=== PATIENT | female | born 1960 | race Caucasian/White ===

== ENCOUNTER 2017-07-02 12:22 | Emergency (ER) | payer OTHER, MEDICAID ==
[~2017-07-02] VITALS: Ht 157.5 cm; Wt 50.0 kg
[~2017-07-02 12:22] MED LIST: BENA1TAB19 PO
[2017-07-02] MEDS ORDERED: KETOROLAC 60MG/2ML VIAL IM ONE (17:00)
[2017-07-02 17:31] VITALS: BP 125/85
== END 2017-07-02 17:32 | disposition home or self-care (01) ==
LOC: ER 13:12
DX: M54.2 Cervicalgia (principal); M54.5 Low back pain; M79.1 Myalgia; F41.9 Anxiety disorder, unspecified; Z98.890 Other specified postprocedural states
CPT/HCPCS: 96372; 99283; J1885

== ENCOUNTER 2020-01-11 16:36 | Emergency (ER) | payer OTHER, MEDICAID ==
[~2020-01-11] VITALS: Ht 157.5 cm; Wt 50.0 kg
[2020-01-11] MEDS ORDERED: AMOXICILLIN/POTASSIUM CLAVULANATE 875/125MG TAB PO ONE (18:00)
[2020-01-11] MEDS ORDERED: HYDROCODONE/ACETAMINOPHEN 5/325MG TABLET PO ONE (18:00)
[2020-01-11] MEDS ORDERED: TETANUS, DIPHTHERIA, PERTUSSIS VAC/PF 0.5ML (>7YR OLD) IM ONE (18:00)
[2020-01-11] MEDS ORDERED: KETOROLAC 30MG/ML VIAL IM ONE (20:45)
[2020-01-11 21:33] VITALS: BP 134/78
== END 2020-01-11 21:34 | disposition home or self-care (01) ==
LOC: ER 16:36
DX: S61.452A Open bite of left hand, initial encounter (principal); F41.9 Anxiety disorder, unspecified; I10 Essential (primary) hypertension; Z98.890 Other specified postprocedural states; W55.01XA Bitten by cat, initial encounter; Y93.89 Activity, other specified; Y92.018 Other place in single-family (private) house as the place of occurrence of the external cause
CPT/HCPCS: 73120; 90471; 90715; 96372; 99284; J1885

== ENCOUNTER 2024-03-17 19:05 | Emergency (ER) | payer MEDICARE, MEDICAID ==
[~2024-03-17] VITALS: Ht 157.5 cm; Wt 54.0 kg
[2024-03-17 19:20] VITALS: O2SAT 100
[2024-03-17] MEDS: DIAZEPAM 5 MG/ML 2ML SYR IV ONE (20:11)
[2024-03-17] MEDS: LACTATED RINGERS 1,000 ML IV SCH (20:12)
[2024-03-17 20:43] LABS: BASOPHILS % 0.4 % (0.0-2.0); EOSINOPHILS % 0.7 % (0.0-5.0); HEMATOCRIT. 27.9 % (36.0-48.0); HEMOGLOBIN. 9.9 g/dL (12.0-16.0); LYMPHOCYTES % 13.4 % (20.0-50.0); MEAN CORPUSCULAR HGB CONC 35.3 g/dL (31.0-37.0); MEAN CORPUSCULAR VOLUME 87.8 fL (81.0-99.0); MEAN PLATELET VOLUME 6.6 fl (7.4-10.4); MONOCYTES % 7.8 % (2.0-8.0); NEUTROPHILS % 77.7 % (40.0-76.0); PLATELET 412 x1000/uL (130-400); RED BLOOD CELL COUNT 3.18 mill/uL (4.2-5.4); RED CELL DISTRIBUTION WIDTH 13.3 % (11.6-14.6); WHITE BLOOD COUNT 8.1 x1000/uL (4.5-11.0)
[2024-03-17 20:47] LABS: CHLORIDE 82 mEq/L (98-107); POTASSIUM 3.1 mEq/L (3.5-5.1)
[2024-03-17 20:48] LABS: CALCIUM 10.3 mg/dL (8.7-10.4); CARBON DIOXIDE 26 mEq/L (21-32)
[2024-03-17 20:53] LABS: CREATININE 0.8 mg/dL (0.6-1.0); GLUCOSE 104 mg/dL (70-105); UREA NITROGEN BLOOD 13 mg/dL (9-23)
[2024-03-17 20:55] LABS: ALANINE AMINOTRANSFERASE 21 IU/L (10-49); ALBUMIN 4.3 g/dL (3.2-4.8); ASPARTATE AMINOTRANSFERASE 29 IU/L (<34)
[2024-03-17 20:56] LABS: BILIRUBIN TOTAL 1.1 mg/dL (0.1-1.0); PROTEIN TOTAL 6.9 g/dL (6.0-8.3)
[2024-03-17 20:59] LABS: SODIUM 115 mEq/L (136-145)
[2024-03-17 23:04] VITALS: BP 136/98; PULSE 96; RESP 16; TEMP 36.78072; O2SAT 98
== END 2024-03-17 23:08 | disposition left against medical advice (07) ==
LOC: ER 19:05
DX: F10.239 Alcohol dependence with withdrawal, unspecified (principal); F41.9 Anxiety disorder, unspecified; I10 Essential (primary) hypertension; Z90.710 Acquired absence of both cervix and uterus; Y90.9 Presence of alcohol in blood, level not specified
CPT/HCPCS: 36415; 80053; 85025; 96361; 96374; 99291

== ENCOUNTER 2024-12-21 14:17 | Emergency (ER) | payer MEDICARE, MEDICAID ==
[~2024-12-21] VITALS: Ht 157.5 cm; Wt 49.0 kg
[2024-12-21 14:21] VITALS: BP 148/79; PULSE 100; RESP 16; TEMP 36.7; O2SAT 99
[2024-12-21] MEDS ORDERED: AMOX1TAB16 MT (14:57)
[2024-12-21] MEDS ORDERED: ACET-2708 MT (14:57)
[2024-12-21] MEDS: ACETAMINOPHEN 500MG TABLET PO ONE (14:59)
== END 2024-12-21 15:28 | disposition home or self-care (01) ==
LOC: ER 14:17
DX: S61.251A Open bite of left index finger without damage to nail, initial encounter (principal); I10 Essential (primary) hypertension; F41.9 Anxiety disorder, unspecified; F10.90 Alcohol use, unspecified, uncomplicated; Z55.6 Problems related to health literacy; Z59.00 Homelessness unspecified; Z79.899 Other long term (current) drug therapy; Z90.710 Acquired absence of both cervix and uterus; W54.0XXA Bitten by dog, initial encounter; Y93.89 Activity, other specified; Y92.89 Other specified places as the place of occurrence of the external cause; Y99.8 Other external cause status; Y90.9 Presence of alcohol in blood, level not specified
CPT/HCPCS: 99283